=== PATIENT | male | born 1995 | race African-American/Black ===

== ENCOUNTER → 2023-07-14 | Outpatient (CLI) | payer OTHER | LOC: M WUC 12:23 | PROVIDERS: ATTEND Nurse Practitioner Family | DX: M54.6 Pain in thoracic spine (principal); M54.50 Low back pain, unspecified ==

== ENCOUNTER 2024-08-10 10:16 | Emergency (ER) | payer OTHER, SELFPAY ==
[~2024-08-10] VITALS: Ht 172.7 cm; Wt 78.9 kg
[2024-08-10 10:20] VITALS: BP 128/62; TEMP 101.1; O2SAT 98
== END 2024-08-10 10:24 | disposition left against medical advice (07) ==
LOC: M ED 10:16
DX: Z53.21 Procedure and treatment not carried out due to patient leaving prior to being seen by health care provider (principal)

== ENCOUNTER → 2024-08-10 | Outpatient (REF) | LOC: M EMP 10:13 | PROVIDERS: ATTEND Family Medicine | DX: Z11.52 Encounter for screening for COVID-19 (principal) ==

== ENCOUNTER → 2025-05-11 | Outpatient (CLI) | payer OTHER ==
[2025-05-11 14:08] LABS: FREE T4 1.11 NG/DL (0.89-1.76)
[2025-05-11 14:13] LABS: THYROGLOBULIN ANTIBODY 22.0 U/ML (<60.0); TOTAL T3 114.5 NG/DL (60.0-181.0)
[2025-05-11 14:14] LABS: THYROID PEROXIDASE ANTIBODY < 28.0 U/ML (<60.0)
== END ==
LOC: M LAB 12:17
PROVIDERS: ATTEND Otolaryngology
DX: E06.9 Thyroiditis, unspecified (principal)

== ENCOUNTER → 2025-06-08 | Outpatient (CLI) | payer OTHER | LOC: M RAD 10:36 | PROVIDERS: ATTEND Otolaryngology | DX: R22.1 Localized swelling, mass and lump, neck (principal) ==